=== PATIENT | male | born 1935 | race Caucasian/White ===

== ENCOUNTER → 2019-12-22 | Outpatient (CLI) | payer OTHER ==
[~2019-12-22] MED LIST: ASPI81CH PO; GLIP5 PO; HYDR1TAB94 PO; LISHYD2025 PO; Levitra20 MG PO; METF500 PO; NITR100 PO; SIMV40 PO
[2019-12-22 06:52] LABS: Source, Urine Clean Catch
[2019-12-22 08:03] LABS: Bilirubin, Urine Neg (Neg); Blood, Urine 5+ (Neg); Glucose Qualitative, Urine Neg (Neg); Ketones, Urine 1+ (Neg); Leukocyte Esterase, Urine 3+ (Neg); Nitrite, Urine Neg (Neg); Protein, Urine 3+ (Neg); Urobilinogen, Urine NORM (Normal)
[2019-12-22 08:15] LABS: Appearance, Urine Turbid (Clear); Color, Urine Red (P-Yellow)
[2019-12-22 08:18] LABS: Bacteria Many /hpf; Red Blood Cells, Urine TNTC /hpf (0-2); Squamous Epithelial Cells Not Seen /hpf (Few); White Blood Cells, Urine 50-100 /hpf (0-5)
== END | disposition home or self-care (01) ==
LOC: OLS 06:40 → LAB SHORT 06:40 → LAB FUT 12-20 14:25
PROVIDERS: Registered Nurse Oncology
DX: C64.9 Malignant neoplasm of unspecified kidney, except renal pelvis (principal); R31.9 Hematuria, unspecified
CPT/HCPCS: 81001

== ENCOUNTER 2020-03-16 19:04 | Emergency (ER) | payer OTHER ==
[~2020-03-16] VITALS: Ht 175.3 cm; Wt 72.1 kg
[~2020-03-16 19:04] MED LIST changes: -ASPI81CH PO; +Aspirin EC81 MG PO
[2020-03-16 19:52] LABS: BASOPHILS ABSOLUTE AUTO 0.04 K/mm3 (0.00-0.23); BASOPHILS PERCENT AUTO 1 % (0-2); EOSINOPHILS ABSOLUTE AUTO 0.03 K/mm3 (0.00-0.68); EOSINOPHILS PERCENT AUTO 1 % (0-6); Hematocrit 33.7 % (37.0-53.0); Hemoglobin 11.1 g/dL (13.5-17.5); IMMATURE GRAN ABSOLUTE AUTO 0.06 K/mm3 (0.00-0.10); IMMATURE GRAN PERCENT AUTO 1 % (0-1); LYMPHOCYTES ABSOLUTE AUTO 0.83 K/mm3 (0.84-5.20); LYMPHOCYTES PERCENT AUTO 16 % (21-46); MONOCYTES ABSOLUTE AUTO 1.01 K/mm3 (0.16-1.47); MONOCYTES PERCENT AUTO 19 % (4-13); Mean Corpuscular HGB 32.9 pg (26.0-34.0); Mean Corpuscular HGB Conc 32.9 g/dL (31.5-36.5); Mean Corpuscular Volume 100 fL (80-100); Mean Platelet Volume 9.8 fL (9.1-12.4); NEUTROPHILS ABSOLUTE AUTO 3.28 K/mm3 (1.96-9.15); NEUTROPHILS PERCENT AUTO 63 % (41-73); Platelet Count 231 K/mm3 (150-400); RDW Coefficient Variation 14.9 % (11.7-14.2); RDW Standard Deviation 55.9 fL (35.1-46.3); Red Blood Cell Count 3.37 M/mm3 (4.30-5.90); White Blood Cell Count 5.25 K/mm3 (4.00-11.30)
[2020-03-16 20:13] LABS: Albumin, Blood 2.1 g/dL (3.4-5.0); Albumin/Globulin Ratio 0.6 (0.8-1.8); Bilirubin, Total 0.7 mg/dL (0.1-1.0); Bun/Creatinine Ratio 19.3 (12.0-20.0); Calcium, Blood 9.5 mg/dL (8.5-10.1); Creatinine, Blood 1.61 mg/dL (0.60-1.20); Globulin, Blood 3.5 g/dL (2.2-4.0); Potassium, Blood 3.8 mmol/L (3.5-5.5); Total Protein, Blood 5.6 g/dL (6.4-8.2)
[2020-03-16 20:15] LABS: Source, Urine Clean Catch
[2020-03-16 20:17] LABS: Bilirubin, Urine Neg (Neg); Blood, Urine 5+ (Neg); Glucose Qualitative, Urine Neg (Neg); Ketones, Urine Neg (Neg); Leukocyte Esterase, Urine 3+ (Neg); Nitrite, Urine Neg (Neg); Protein, Urine 3+ (Neg); Specific Gravity, Urine 1.015 (1.003-1.022); Urobilinogen, Urine 1+ (Normal)
[2020-03-16 20:25] LABS: Appearance, Urine Cloudy (Clear); Color, Urine Amber (P-Yellow)
[2020-03-16 20:26] LABS: Red Blood Cells, Urine TNTC /hpf (0-2); White Blood Cells, Urine TNTC /hpf (0-5)
[2020-03-16 20:27] LABS: Bacteria Many /hpf; Squamous Epithelial Cells Rare /hpf (Few)
[2020-03-16] MEDS ORDERED: KEFLEX500 MG PO (21:34)
[2020-03-16] MEDS ORDERED: Lasix20 MG PO (21:34)
== END 2020-03-16 22:09 | disposition home or self-care (01) ==
LOC: ER 19:04
PROVIDERS: Emergency Medicine
DX: N39.0 Urinary tract infection, site not specified (principal); R60.0 Localized edema; E11.9 Type 2 diabetes mellitus without complications; Z79.84 Long term (current) use of oral hypoglycemic drugs; Z79.82 Long term (current) use of aspirin; Z79.899 Other long term (current) drug therapy; Z87.891 Personal history of nicotine dependence; W18.30XA Fall on same level, unspecified, initial encounter
CPT/HCPCS: 36415; 71045; 80053; 81001; 85025; 87077; 87086; 93005; 93010; 99285-25; J0696

== ENCOUNTER 2020-03-18 16:34 | Inpatient (IN) | payer OTHER, MEDICARE ==
[~2020-03-18] VITALS: Ht 175.3 cm; Wt 69.0 kg
[~2020-03-18 16:34] MED LIST changes: +KEFLEX500 MG PO; +Lasix20 MG PO
[2020-03-18 20:15] LABS: BASOPHILS ABSOLUTE AUTO 0.04 K/mm3 (0.00-0.23); BASOPHILS PERCENT AUTO 1 % (0-2); EOSINOPHILS ABSOLUTE AUTO 0.04 K/mm3 (0.00-0.68); EOSINOPHILS PERCENT AUTO 1 % (0-6); Hematocrit 34.8 % (37.0-53.0); Hemoglobin 11.4 g/dL (13.5-17.5); IMMATURE GRAN ABSOLUTE AUTO 0.06 K/mm3 (0.00-0.10); IMMATURE GRAN PERCENT AUTO 1 % (0-1); LYMPHOCYTES ABSOLUTE AUTO 0.86 K/mm3 (0.84-5.20); LYMPHOCYTES PERCENT AUTO 13 % (21-46); MONOCYTES ABSOLUTE AUTO 1.21 K/mm3 (0.16-1.47); MONOCYTES PERCENT AUTO 18 % (4-13); Mean Corpuscular HGB 32.9 pg (26.0-34.0); Mean Corpuscular HGB Conc 32.8 g/dL (31.5-36.5); Mean Corpuscular Volume 101 fL (80-100); Mean Platelet Volume 10.1 fL (9.1-12.4); NEUTROPHILS ABSOLUTE AUTO 4.52 K/mm3 (1.96-9.15); NEUTROPHILS PERCENT AUTO 67 % (41-73); Platelet Count 244 K/mm3 (150-400); RDW Standard Deviation 54.8 fL (35.1-46.3); Red Blood Cell Count 3.46 M/mm3 (4.30-5.90); White Blood Cell Count 6.73 K/mm3 (4.00-11.30)
[2020-03-18 20:31] LABS: International Normalized Ratio 1.18; Prothrombin Time Results 12.5 Sec (9.7-11.5)
[2020-03-18 20:43] LABS: Albumin, Blood 2.4 g/dL (3.4-5.0); Albumin/Globulin Ratio 0.6 (0.8-1.8); Bilirubin, Total 0.6 mg/dL (0.1-1.0); Bun/Creatinine Ratio 23.2 (12.0-20.0); Creatinine, Blood 1.77 mg/dL (0.60-1.20); Globulin, Blood 3.7 g/dL (2.2-4.0); Potassium, Blood 3.5 mmol/L (3.5-5.5); Total Protein, Blood 6.1 g/dL (6.4-8.2)
[2020-03-18 21:28] LABS: CHOL/HDL RATIO 5.8; Cholesterol 146 mg/dL (50-200); HDL Cholesterol 25 mg/dL (>39); Low Density Lipoprotein Chol 74 mg/dL (0-110); Triglycerides 236 mg/dL (30-160); Very Low Density Lipoprot Chol 47 mg/dL (6-32)
[2020-03-19 01:15] LABS: BASOPHILS ABSOLUTE AUTO 0.06 K/mm3 (0.00-0.23); BASOPHILS PERCENT AUTO 1 % (0-2); EOSINOPHILS ABSOLUTE AUTO 0.09 K/mm3 (0.00-0.68); EOSINOPHILS PERCENT AUTO 1 % (0-6); Hematocrit 37.9 % (37.0-53.0); Hemoglobin 12.6 g/dL (13.5-17.5); IMMATURE GRAN ABSOLUTE AUTO 0.08 K/mm3 (0.00-0.10); IMMATURE GRAN PERCENT AUTO 1 % (0-1); LYMPHOCYTES ABSOLUTE AUTO 1.33 K/mm3 (0.84-5.20); LYMPHOCYTES PERCENT AUTO 15 % (21-46); MONOCYTES ABSOLUTE AUTO 1.52 K/mm3 (0.16-1.47); MONOCYTES PERCENT AUTO 17 % (4-13); Mean Corpuscular HGB 32.9 pg (26.0-34.0); Mean Corpuscular HGB Conc 33.2 g/dL (31.5-36.5); Mean Corpuscular Volume 99 fL (80-100); Mean Platelet Volume 9.5 fL (9.1-12.4); NEUTROPHILS ABSOLUTE AUTO 5.77 K/mm3 (1.96-9.15); NEUTROPHILS PERCENT AUTO 65 % (41-73); Platelet Count 250 K/mm3 (150-400); RDW Coefficient Variation 14.8 % (11.7-14.2); RDW Standard Deviation 54.1 fL (35.1-46.3); Red Blood Cell Count 3.83 M/mm3 (4.30-5.90); White Blood Cell Count 8.85 K/mm3 (4.00-11.30)
--- NOTE | 2020-03-19 05:24 | NUR ---
ADMIT AND END OF SHIFT SUMMARY PT TO UNIT FROM ED, SLID OVER FROM ER STRETCHER. PT AXO BUT NOTED TO B POOR HISTORIAN AND PRESENTS WITH SOME POSSIBLE DEMENTIA. PER REPORT, PT WAS CLOSE TO LEAVING AMA, PT HAS REPEATED THESE INTENTIONS OF LEAVING AMA IN MORNING. HAS BEEN ADAMANT THAT HE HAS NO CARDIAC ISSUES AND THAT THIS IS ALL FAKE. MUCH EDUCATION PROVIDED. SINUS RHYTHM, HAS DENIED CP ALL SHIFT. REMAINS OMN RA. FREQUQNT SMALL VOIDS. BASELINE TREMOR. WOUNDS TO BUE'S, PT DENYING THIS RN TO VIEW AND REDRESS WOUNDS DESPITE EDUCATION. TROPONIN NOTED TO GREATLY INCREASE THIS ADMISSION. WINSTON CALLED, HEPARIN GTT STARTRED AND A MULTITUDE OF OTHER MEDS STARTED, SEE EMAR. 9254 - URINE NOTED TO BE DARK RED NOW. ADMIT SHOWED DRDavid YELLOW. TO CALL NOW FOR ORDERS HEPARIN GTT INFUSING CURRENTLY. WILL CONTINUE TO MONITOR UNTIL SHIFT CHANGE.
--- NOTE | 2020-03-19 05:59 | NUR ---
PROVIDER DR MONTERO NOTIFIED ABOUT PT'S NEW HEMATURIA POST HEPARIN GTT INITIATION. UPDATED THAT PT RECENTLY HAD HEMATURIA AT HOME AND THAT PT HAS CURRENT RENAL CALCULI AND A RENAL TUMOR. STATES TO CONTINUE TO MONITOR AT THIS TIME.
--- NOTE | 2020-03-19 07:38 | NUR ---
ASSUMED PATIENT CARE. PATIENT SLEEPING COMFORTABLY IN BED, NO SIGNS OF ACUTE DISTRESS, WCTM.
--- NOTE | 2020-03-19 11:53 | NUR ---
echocardiogram completed
--- NOTE | 2020-03-19 15:44 | NUR ---
REPORT GIVEN TO [facility].
--- NOTE | 2020-03-19 16:47 | NUR ---
PT TRANSFER/SHIFT SUMMARY PT TRANSFERRED FROM PCU TO MEDICAL FLOOR. ASSUMED CARE OF PATIENT AT APPROX 1600. PT TRANSFERRED VIA WC. MOVED TO BED SAFELY WITH SBA. PT ORIENTED TO ROOM. VITALS CHECKED. BED ALARM ON. PT INSTRUCTED TO USE CALL LIGHT PRIOR TO GETTING UP. PT ASSESSED AT BEDSIDE. LUNG SOUNDS CLEAR. TELE RUNNING SINUS CAESAR PVC'S PER TAWNY. PT DENIES CP OR SOB. PER REPORT, PT HAS RED URINARY DRIBBLING. [facility] WILL CONTINUE TO MONITOR.
--- NOTE | 2020-03-20 02:55 | NUR ---
PATIENT UP WITH URINARY URGENCY T/O SHIFT VOIDING 100-150 mL MOSTLY AND ACTIVATING BED ALARM. USES URINAL AT BEDSIDE. WILL CONTINUE TO MONITOR.
--- NOTE | 2020-03-20 03:40 | NUR ---
SHIFT SUMMARY PATIENT HAD NO ACUTE CHANGES OBSERVED. AXO X3 WITH CONFUSION AND FORGETFUL AT TIMES. URINARY URGENCY ACTIVATING BED ALARM. USES URINAL AT BEDSIDE WITH ONE ASSIST. VOIDING DARK RED URINE T/O SHIFT. PIV REMAINS INTACT. DOPE EDGER REPORTS NSR 70. DENIES PAIN, SOB, AND N/V. VSS/AFEBRILE. CALL LIGHT IN REACH. BED IN LOWEST POSITION. WILL CONTINUE TO MONITOR UNTIL DAY SHIFT NURSE ASSUMES CARE.
[2020-03-20 05:33] LABS: Hematocrit 35.1 % (37.0-53.0); Hemoglobin 11.6 g/dL (13.5-17.5)
[2020-03-20 06:00] LABS: Albumin, Blood 1.9 g/dL (3.4-5.0); Anion Gap 6 mmol/L (6-16); Blood Urea Nitrogen 37 mg/dL (8-24); Bun/Creatinine Ratio 21.3 (12.0-20.0); CO2, Blood 25 mmol/L (21-32); Calcium, Blood 9.6 mg/dL (8.5-10.1); Chloride, Blood 113 mmol/L (98-108); Creatinine, Blood 1.74 mg/dL (0.60-1.20); Glomerular Filtration Rate 40 (60-); Glucose, Blood 128 mg/dL (70-99); Potassium, Blood 3.2 mmol/L (3.5-5.5); Sodium, Blood 144 mmol/L (136-145)
[2020-03-20] MEDS ORDERED: FURO20 PO (11:59)
--- NOTE | 2020-03-20 16:36 | NUR ---
SHIFT SUMMARY PT CONTINUES TO URINATE FREQUENTLY AND URGENTLY. URINE REMAINS BLOODY WITH OCCATIONAL CLOTS. MD AWARE. PT ALLOWED FOR WOUND CARE TO BE COMPLETED. PICTURES TAKEN. PT DENIES CP & SOB T/O SHIFT. PT C/O PAIN TO BUTTOCKS FROM SITTING ON IT. SACRAL MEPILEX APPLIED FOR COMFORT & PREVENTION. PT SON UPDATED THIS SHIFT. PT IN TO SEE PT THIS SHIFT. NO OTHER CHAGNES IN ASSESSMENT AT THIS TIME. VS REVIEWED. WILL CONTINUE TO MONITOR UNTIL TURNOVER IS COMPLETE.
--- NOTE | 2020-03-21 04:15 | NUR ---
SHIFT SUMMARY ADMITTED FOR NSTEMI. FULL CODE. 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 BED ALARM IS ON HE CAN BE IMPULSIVE. DR AGUILERA IS HIS CANCER DOCTOR, LAST CHEMO WAS Feb. TELEMETRY: CAESAR @ 55 BPM. HE IS UNSTABLE ON HIS FEET, HX OF CVA & TREMORS. HE SLEPT THROUGHOUT THIS SHIFT, WAKING ONLY TO USE THE URINAL.
[2020-03-21 05:48] LABS: BASOPHILS ABSOLUTE AUTO 0.07 K/mm3 (0.00-0.23); BASOPHILS PERCENT AUTO 1 % (0-2); EOSINOPHILS ABSOLUTE AUTO 0.27 K/mm3 (0.00-0.68); EOSINOPHILS PERCENT AUTO 3 % (0-6); Hematocrit 34.7 % (37.0-53.0); Hemoglobin 11.5 g/dL (13.5-17.5); IMMATURE GRAN ABSOLUTE AUTO 0.16 K/mm3 (0.00-0.10); IMMATURE GRAN PERCENT AUTO 2 % (0-1); LYMPHOCYTES PERCENT AUTO 14 % (21-46); MONOCYTES ABSOLUTE AUTO 1.37 K/mm3 (0.16-1.47); MONOCYTES PERCENT AUTO 14 % (4-13); Mean Corpuscular HGB 33.1 pg (26.0-34.0); Mean Corpuscular HGB Conc 33.1 g/dL (31.5-36.5); Mean Corpuscular Volume 100 fL (80-100); Mean Platelet Volume 9.8 fL (9.1-12.4); NEUTROPHILS ABSOLUTE AUTO 6.56 K/mm3 (1.96-9.15); NEUTROPHILS PERCENT AUTO 67 % (41-73); Platelet Count 256 K/mm3 (150-400); Red Blood Cell Count 3.47 M/mm3 (4.30-5.90); White Blood Cell Count 9.83 K/mm3 (4.00-11.30)
[2020-03-21 05:58] LABS: Albumin, Blood 1.9 g/dL (3.4-5.0); Anion Gap 6 mmol/L (6-16); Blood Urea Nitrogen 38 mg/dL (8-24); Bun/Creatinine Ratio 20.4 (12.0-20.0); CO2, Blood 24 mmol/L (21-32); Calcium, Blood 9.6 mg/dL (8.5-10.1); Chloride, Blood 114 mmol/L (98-108); Creatinine, Blood 1.86 mg/dL (0.60-1.20); Glomerular Filtration Rate 37 (60-); Glucose, Blood 132 mg/dL (70-99); Phosphorus, Blood 2.4 mg/dL (2.5-4.9); Potassium, Blood 3.7 mmol/L (3.5-5.5); Sodium, Blood 144 mmol/L (136-145)
--- NOTE | 2020-03-21 16:28 | NUR ---
SHIFT SUMMARY- PT A/O TO PERSON AND PLACE. PT IMPULSIVE AND DOES NOT USE CALL LIGHT APROPRIATELY, UNSTEADY GAIT NOTED. PT DENIES ANY COMPLAINTS T/O THE DAY. LS CLEAR, ON RA. TELE SR AT 86. 3+ BLE EDEMA. PT CONT TO HAVE DARK BLOODY URINE. ABRASIONS TO BUE. CARE MANAGEMENT WORKING ON DISCHARGE PLAN FOR PT, PT CANNOT GO TO SN[facility] OR [facility] DUE TO CHEMO, PT IS NOT APROPRIATE TO LIVE ALONE. SON FROM [place] UPDATED TODAY. NO OTHER ACUTE CHANGES THIS SHIFT.
--- NOTE | 2020-03-22 05:13 | NUR ---
AD OPERATIONS INTERN SUMMARY PT AXO X3 BUT CONFUSED AT TIMES. PT HAD UNEVENTFUL NIGHT BUT USED HIS CALL LIGHT SEVERAL TIMES FOR ASSISTANCE TO USE THE URINAL AT THE BEDSIDE. PT CONTINUES TO HAVE DARK RED URINE BUT DENIES ANY PAIN. PT SLEPT MOST OF THE NIGHT AND IS CURRENTLY SLEEPING COMFORTABLY W CALL LIGHT WITHIN REACH.
[2020-03-22 06:36] LABS: Albumin, Blood 1.9 g/dL (3.4-5.0); Anion Gap 8 mmol/L (6-16); Blood Urea Nitrogen 40 mg/dL (8-24); Bun/Creatinine Ratio 20.3 (12.0-20.0); CO2, Blood 24 mmol/L (21-32); Calcium, Blood 9.5 mg/dL (8.5-10.1); Chloride, Blood 111 mmol/L (98-108); Creatinine, Blood 1.97 mg/dL (0.60-1.20); Glomerular Filtration Rate 34 (60-); Glucose, Blood 133 mg/dL (70-99); Phosphorus, Blood 2.8 mg/dL (2.5-4.9); Potassium, Blood 3.6 mmol/L (3.5-5.5); Sodium, Blood 143 mmol/L (136-145)
--- NOTE | 2020-03-22 19:42 | NUR ---
Shift Summary A/Ox3, pleasant and cooperative with care. Patient allowed this RN to assess him and change dressing to NATTY. Tele: SR 67 with trigeminal PVC's. Urine continues to be cranberry colored. Denies pain, nausea, vomiting, diarrhea. No acute changes or concerns, report given to oncoming RN.
--- NOTE | 2020-03-23 05:09 | NUR ---
SHIFT SUMMARY ADMITTED FOR NSTEMI. FULL CODE. DX WITH RENAL CANCER WITH METS TO LUNGS. CHEMO TX SUSPENDED UNTIL REHAB IS COMPLETE. PLAN IS FOR PLACEMENT AT [facility] VS. PLACEMENT WITH [facility] ON [facility]. TELEMETRY: CAESAR @ 51 BPM. NO NEW CONCERNS THIS SHIFT.
[2020-03-23 05:18] LABS: Hemoglobin 11.9 g/dL (13.5-17.5)
[2020-03-23 06:15] LABS: Anion Gap 9 mmol/L (6-16); Blood Urea Nitrogen 41 mg/dL (8-24); Bun/Creatinine Ratio 22.7 (12.0-20.0); CO2, Blood 23 mmol/L (21-32); Chloride, Blood 110 mmol/L (98-108); Creatinine, Blood 1.81 mg/dL (0.60-1.20); Glomerular Filtration Rate 38 (60-); Glucose, Blood 138 mg/dL (70-99); Potassium, Blood 3.6 mmol/L (3.5-5.5); Sodium, Blood 142 mmol/L (136-145)
--- NOTE | 2020-03-23 15:21 | NUR ---
Spoke with Bedside RN Sarah and discussed case. Sarah reports Pt may benefit from conversation regarding advanced care planning. Pt is sitting in chair upon arrival. Pt is A&OX4 and denies pain at this time. Pt also denies dyspnea and anxiety. Engaged in therapeutic listening as Pt discusses plan to D/C to [facility] in [place] for rehab. Pt reports living home alone and has 3 children all of whom live out of state. Pt's son (ELIU) lives in [facility], and 2 daughters that live on the [facility]. Engaged in therapeutic discussion regarding the importance of planning for the future. Gentle education provided regarding disease process and trajectory of disease. Discussed the importance of having a support system in place as cancer takes its coarse with the possbility of needing assistance with ADLs. Pt reports plan of moving in with his daughter who lives in [place] after [facility]. Engaged in therapeutic discussion regarding CPR. Educated on life sustaining measures including risk factors and implications. Pt appears to have a low level of understanding of education for CPR. Re-enforced education and discussed in different way in attempt to help Pt understand. Pt reports no concerns at this time. Palliative Care will remain available.
--- NOTE | 2020-03-23 18:13 | NUR ---
PT AOX3 AND COOPERATIVE OF CARE. PT CONTINUES TO BE IMPULSIVE AND WILL GET UP ON HIS OWN. PT IS A ONE PERSON WITH WALKER TO RESTROOM. PT CONTINUES TO HAVE BLOOD IN HIS URINE AND IS AWARE. PT INTERACTS WITH CARE, BUT SEEMS TO BE UNHAPPY AND DOES NOT SEEM TO ENJOY THE INTERACTION. PT DENIED ANY PAIN, WILL CONTINUE TO MONITOR.
--- NOTE | 2020-03-24 06:06 | NUR ---
PT UP FREQUENTLY THROUGH NIGHT - FREQUENT VOIDING INTERMITTENT CONFUSION TELE NSR ROOM AIR STAND BY ASSIST WHEN AT BEDSIDE VOIDS VOIDING TO URINAL - SMALL AMTS EACH TIME, CRANBERRY RED NO BM PREVENTATIVE MEPILEX ON SACRUM NO C/O PAIN CBG 155 CALL LIGHT WITHIN REACH, BED IN LOWEST POSITION. WILL CONTINUE TO MONITOR.
--- NOTE | 2020-03-24 18:47 | NUR ---
SHIFT SUMMARY PATIENT IS ALERT AND ORIENTED, ALMSOT INDEPENDENT AND CALLS APPROPRIATELY. HE IS CURRENTLY AWAITING PLACEMENT AT [facility] WITH THE NM [facility] REHABILITATION [facility]. NO ACUTE CONCERNS PER PATIENT MINUS GETTING OUT OF THE HOSPITAL. PATIENT HOPES TO GO BACK HOME AFTER REHABILITATION.
--- NOTE | 2020-03-25 04:38 | NUR ---
SHIFT SUMMARY ASSUMED CARE OF PT AT 1900. PT IS A/OX4, DENIES N/T IN EXTERMITES. HEART SOUNDS REGULAR, TELE SHOWS SINUS CAESAR @ 77, DENIES CP. LUNG SOUNDS DIMINISHED, DENIES SOB. PT URINE IS DARK RED. NO ACUTE EVENTS DURING THE NIGHT. PT SLEPT ALL NIGHT. CALL LIGHT IN REACH, BED IN LOWEST POSTION, BED ALARM ON.
--- NOTE | 2020-03-25 15:30 | NUR ---
SHIFT SUMMARY PT IS A/O X 4 WITH NO C/O PAIN. HE IS A SBA TO USE THE URINAL. HE IS [place]. HIS SON ARRIVED FROM OUT OF STATE THIS MORNING TO HELP WITH HIS DC PLAN AND MET WITH THE NURSE BUTTON RECLAIMER. OF NOW THE PLAN IS FOR [facility]. PT URINE REMAINS CRANBERRY COLOR AND THE DR IS AWARE. WINDOWS APPLICATION ADMINISTRATOR REPORTS SINUS RHYTHM AND THE PT DENIES ANY CHEST PAIN. THE PT IS ABLE TO MAKE HIS NEEDS KNOWN AND CALLS FOR HELP WHEN NEEDED.
--- NOTE | 2020-03-26 04:17 | NUR ---
SHIFT SUMMARY ASSUMED CARE OF PT AT 1900. PT IS A/OX4, PT DENIES N/T IN EXTREMTIES. HEART SOUNDS REGULAR, TELE SHOWS SINUS RYTHMN @ 66, DENIES CP. LUNG SOUNDS HAVE CRACKLES AT THE BASES AND ARE DIMINISHED, DENIES SOB. PT IS STILL URINATING CRANBERRY COLORS URINE, PT IS INDEPENDENT WITH URINAL. PT STATED THAT HE WAS NOT TO GET ANY MEDICATIONS UNTIL [facility] TO THE [facility]. SON CAME THIS PM AND SAID THAT HE WAS CONFUSED AND THE HE WAS ONLY SUPPOSED TO STOP HIS ANTICOAGULANTS DUE TO BLOOD IN URINE. NO ACUTE EVENTS DURING THE NIGHT. PT SLEPT T/O THE NIGHT. CALL LIGHT IN REACH, BED IN LOWEST POSTION.
[2020-03-26 05:26] LABS: Anion Gap 8 mmol/L (6-16); Blood Urea Nitrogen 47 mg/dL (8-24); Bun/Creatinine Ratio 23.6 (12.0-20.0); CO2, Blood 24 mmol/L (21-32); Calcium, Blood 10.4 mg/dL (8.5-10.1); Chloride, Blood 109 mmol/L (98-108); Creatinine, Blood 1.99 mg/dL (0.60-1.20); Glomerular Filtration Rate 34 (60-); Glucose, Blood 139 mg/dL (70-99); Magnesium, Blood 2.1 mg/dL (1.6-2.4); Phosphorus, Blood 3.1 mg/dL (2.5-4.9); Potassium, Blood 3.8 mmol/L (3.5-5.5); Sodium, Blood 141 mmol/L (136-145)
--- NOTE | 2020-03-26 10:47 | NUR ---
PHYSICIAN NOTIFIED/MEDS THIS RN CALLED DR. NAGEL AT 0850 TO CLARIFY A PROGRESS NOTE THAT ADVISES PT TO AVOID ANTICOAGULANTS. PT IS REFUSING ANTICOAGULANTS "BECAUSE [facility] TOLD [facility] NOT TO [facility] THEM. I DO NOT WANT THOSE MEDICATIONS." DR. NAGEL CONFIRMED THIS RN COULD HOLD THE 0900 DOSE OF PLAVIX AND ASPIRIN TODAY. THIS RN ALSO NOTIFIED DR. NAGEL OF PT'S APICAL PULSE RATE OF 53 AND HELD 0900 METOPROLOL DOSE.
--- NOTE | 2020-03-26 16:57 | NUR ---
SHIFT SUMMARY PT IS AOX3. PT DENIES PAIN, N/V, SOB. THIS RN AMBULATED 200 FT WITH PT IN THE HALLWAY USING A GAIT BELT AND WALKER. PT IS STEADY ON HIS FEET. PT IS AWAIT[facility] TO THE [facility]. SON IN ROOM TO VISIT TODAY. APPETITE IS POOR. PT IS IN BED, LOW POSITION, CALL LIGHT IN REACH.
--- NOTE | 2020-03-27 01:34 | NUR ---
Son was with pt at shift commence, but left soon afterward. Pt denied distress and pain. Call light in reach
[2020-03-27 05:04] LABS: BASOPHILS ABSOLUTE AUTO 0.14 K/mm3 (0.00-0.23); BASOPHILS PERCENT AUTO 1 % (0-2); EOSINOPHILS ABSOLUTE AUTO 0.06 K/mm3 (0.00-0.68); EOSINOPHILS PERCENT AUTO 0 % (0-6); Hematocrit 37.1 % (37.0-53.0); Hemoglobin 12.1 g/dL (13.5-17.5); IMMATURE GRAN ABSOLUTE AUTO 0.25 K/mm3 (0.00-0.10); IMMATURE GRAN PERCENT AUTO 2 % (0-1); LYMPHOCYTES PERCENT AUTO 12 % (21-46); MONOCYTES ABSOLUTE AUTO 1.73 K/mm3 (0.16-1.47); MONOCYTES PERCENT AUTO 12 % (4-13); Mean Corpuscular HGB Conc 32.6 g/dL (31.5-36.5); Mean Corpuscular Volume 98 fL (80-100); Mean Platelet Volume 9.6 fL (9.1-12.4); NEUTROPHILS ABSOLUTE AUTO 10.75 K/mm3 (1.96-9.15); NEUTROPHILS PERCENT AUTO 74 % (41-73); Platelet Count 311 K/mm3 (150-400); RDW Coefficient Variation 14.3 % (11.7-14.2); Red Blood Cell Count 3.78 M/mm3 (4.30-5.90); White Blood Cell Count 14.63 K/mm3 (4.00-11.30)
[2020-03-27 05:30] LABS: Albumin, Blood 2.1 g/dL (3.4-5.0); Albumin/Globulin Ratio 0.5 (0.8-1.8); Bilirubin, Total 0.8 mg/dL (0.1-1.0); Bun/Creatinine Ratio 24.6 (12.0-20.0); Calcium, Blood 11.1 mg/dL (8.5-10.1); Creatinine, Blood 2.11 mg/dL (0.60-1.20); Globulin, Blood 3.9 g/dL (2.2-4.0); Potassium, Blood 3.9 mmol/L (3.5-5.5)
--- NOTE | 2020-03-27 06:27 | NUR ---
SHIFT SUMMARY HAS BEEN RESTING QUIETLY WITH FEW INTERRUPTIONS THIS SHIFT. CALL LIGHT IN REACH
--- NOTE | 2020-03-27 16:02 | NUR ---
SHIFT SUMMARY PT IS A/O X 4 WITH NO C/O PAIN. HE REFUSED ALL OF HIS MEDS AND TX AND DR NAGEL IS AWARE. HE WAS PLANNING ON DC TO THE [facility] TODAY BUT ACCORDING TO THE MONOTYPE KEYBOARD OPERATOR THAT PLAN FELL THROUGH SO NOW HE IS FLYING TO THE [facility] TO LIVE NEAR HIS SON TOMORROW NIGHT. OCCUPATIONAL THERAPY SPECIALIST REPORTS SINUS CAESAR WITH PVC'S @ 59. PT USES THE URINAL AT THE BEDSIDE. HE HAS A POOR APPETITE AND REFUSES MOST OF HIS MEALS, THE SON HAS BEEN BRINGING IN PROTEIN DRINKS FOR HIM A SUPPLEMENT. HE IS ABLE TO MAKE HIS NEEDS KNOWN AND CALLS FOR HELP WHEN NEEDED.
--- NOTE | 2020-03-28 01:29 | NUR ---
SON VISITED EARLIER, WAS AT BEDSIDE AT SHIFT COMMENCE. VOICED HE WASNTED THE MD TO HAVE ALL HIS ORDERS AND PAPERWORK IN ORDER TOMORROW SO HE COULD BE READY FOR THE PLANE RIDE HOME FROM [place]. CALL LIGHT IN REACH.
--- NOTE | 2020-03-28 03:46 | NUR ---
SHIFT SUMMARY HAS BEEN RSTING QUIETLY WITH NO NOTED INTERRUPTIONS. CALL LIGHT IN REACH.
[2020-03-28 05:55] LABS: Albumin/Globulin Ratio 0.5 (0.8-1.8); Bilirubin, Total 0.6 mg/dL (0.1-1.0); Bun/Creatinine Ratio 24.8 (12.0-20.0); Calcium, Blood 11.4 mg/dL (8.5-10.1); Creatinine, Blood 2.02 mg/dL (0.60-1.20); Potassium, Blood 4.2 mmol/L (3.5-5.5)
[2020-03-28 06:08] LABS: BASOPHILS PERCENT AUTO 1 % (0-2); EOSINOPHILS ABSOLUTE AUTO 0.08 K/mm3 (0.00-0.68); EOSINOPHILS PERCENT AUTO 1 % (0-6); Hematocrit 37.9 % (37.0-53.0); Hemoglobin 12.5 g/dL (13.5-17.5); IMMATURE GRAN ABSOLUTE AUTO 0.22 K/mm3 (0.00-0.10); IMMATURE GRAN PERCENT AUTO 2 % (0-1); LYMPHOCYTES ABSOLUTE AUTO 1.41 K/mm3 (0.84-5.20); LYMPHOCYTES PERCENT AUTO 10 % (21-46); MONOCYTES PERCENT AUTO 9 % (4-13); Mean Corpuscular HGB 32.7 pg (26.0-34.0); Mean Corpuscular Volume 99 fL (80-100); Mean Platelet Volume 9.4 fL (9.1-12.4); NEUTROPHILS ABSOLUTE AUTO 11.61 K/mm3 (1.96-9.15); NEUTROPHILS PERCENT AUTO 78 % (41-73); Platelet Count 294 K/mm3 (150-400); RDW Coefficient Variation 14.1 % (11.7-14.2); RDW Standard Deviation 51.6 fL (35.1-46.3); Red Blood Cell Count 3.82 M/mm3 (4.30-5.90); White Blood Cell Count 14.82 K/mm3 (4.00-11.30)
[2020-03-28] MEDS ORDERED: ACET325 PO (08:47)
[2020-03-28] MEDS ORDERED: ATOR40TA PO (08:48)
[2020-03-28] MEDS ORDERED: METO25ER PO (08:48)
--- NOTE | 2020-03-28 15:07 | NUR ---
DISCHARGE NOTE UVALDO IS LEAVING BY TO GO HOME WITH HIS SON. THEY ARE LEAVING [place] TO GO TO [place]. PAPERWORK PROVIDED FROM CM, OUR DISCHARGE PAPERWORK REVIEWED. SON PICKED UP NEW PRESCRIPTIONS FROM [facility]. BELONGINGS WENT WITH HIM. SON STATES HE WILL CALL [facility] AND GET [facility] UP WITH NEW PROVIDER AT [facility].
== END 2020-03-28 15:18 | disposition home or self-care (01) | DRG 281 ==
LOC: ER 16:34 → EDBEDREQTM 21:11 → EDBEDREQ 21:11 → MEDS 21:20 → PCU 21:20 → MEDS 03-19 16:20 → ENPENDDIS 03-28 08:31 → MEDS 03-28 15:18
PROVIDERS: Emergency Medicine; Internal Medicine; ADMIT Family Medicine
DX: I21.4 Non-ST elevation (NSTEMI) myocardial infarction (principal); C78.00 Secondary malignant neoplasm of unspecified lung; C64.1 Malignant neoplasm of right kidney, except renal pelvis; D62 Acute posthemorrhagic anemia; I13.0 Hypertensive heart and chronic kidney disease with heart failure and stage 1 through stage 4 chronic kidney disease, or unspecified chronic kidney disease; I50.32 Chronic diastolic (congestive) heart failure; W18.30XA Fall on same level, unspecified, initial encounter; Y92.009 Unspecified place in unspecified non-institutional (private) residence as the place of occurrence of the external cause; E78.5 Hyperlipidemia, unspecified; Z79.82 Long term (current) use of aspirin; E87.6 Hypokalemia; E11.22 Type 2 diabetes mellitus with diabetic chronic kidney disease; Z79.84 Long term (current) use of oral hypoglycemic drugs; N18.3 Chronic kidney disease, stage 3 (moderate)
CPT/HCPCS: 36415; 70450; 71045; 80053; 80061; 80069; 82550; 82947; 83735; 83880; 84484; 85014; 85018; 85025; 85610; 85730; 93005; 93010; 93306; 97110; 97112; 97116; 97162; 97166; 97535; 99285-25; A9270; A9270-GY; J1644; J1940; U0002